=== PATIENT | female | born 1975 | race Caucasian/White ===

== ENCOUNTER → 2021-05-21 | Outpatient (CLI) | payer BC | END | disposition home or self-care (01) | DX: R05 Cough (principal) | CPT/HCPCS: 94060; 94726; 94729 ==

== ENCOUNTER → 2022-02-12 | Outpatient (CLI) | payer BC ==
--- NOTE | 2022-02-12 17:28 | CONS ---
CONSULTATION DATE OF SERVICE: 02/12/2022 This 46-year-old lady has been [facility] for possible obstructive sleep apnea-hypopnea syndrome. HISTORY OF PRESENT ILLNESS/SLEEP-WAKE EVALUATION: The patient does not have a regular sleep schedule. Usually on weekdays she gets up around 5:30 or 6 a.m. and on weekends at different times, later. She has a TV set in the bedroom. Sometimes she has problems with falling asleep. According to her , she snores and wakes up from sleep several times during the night with a dry mouth, panic attacks, palpitations, heartburn. Positive history of restless legs and sweating during the night. No history of hypnagogic hallucinations, sleep paralysis or cataplexy. In the morning the patient wakes up tired, falling asleep during the day, has problems with memory, concentration, irritability, sexual dysfunction. [place] Sleepiness Scale is significantly increased to 16. Sometimes the patient takes naps in the evening. PAST MEDICAL HISTORY: Positive for hypertension, acid reflux, hypothyroidism, panic attacks, arthritis, hypothyroidism, anemia. PAST SURGICAL HISTORY: x2, ganglion cyst removed. MEDICATIONS: 1. Levothyroxine 100 mcg once a day. 2. Omeprazole 20 mg once a day. 3. Losartan 25 mg once a day. 4. Hydrochlorothiazide 25 mg once a day. 5. Nadolol 20 mg once a day. 6. Iron supplement 75 mg once a day. FAMILY HISTORY: Hypertension, heart problems asthma, emphysema, diabetes. REVIEW OF SYSTEMS: Snoring, multiple awakenings from sleep, sleepiness during the day. No fevers. No double vision. No recent chest pain. No shortness of breath. No abdominal pain. No bleeding episodes. No blood in the urine. No seizure episodes. PHYSICAL EXAMINATION: GENERAL: Pleasant lady without distress. VITAL SIGNS: BP 133/73, HR 66, RR 16, height 5 feet 6 inches, weight 292 pounds, body mass index 47.1, temperature 97.0, oxygen saturation at room air 100%. HEENT: PERRLA, EOMI, evaluation of oropharynx showed tongue protrudes midline. Big uvula. Wide pillars. NECK: Supple, no JVD. Thyroid is not palpable. Neck is wide; 17 inches in circumference. LUNGS: Clear to percussion and to auscultation. Good air exchange. No wheezing or rhonchi. HEART: S1, S2 regular. No murmurs, gallops, or rubs. ABDOMEN: Obese. EXTREMITIES: No clubbing or cyanosis. BLEACH MAKER: Awake, alert, and oriented X3. Cranial nerves 2 to 7 intact. There is no fasciculation or atrophy. noted. No focal deficits observed. IMPRESSION: 1. Snoring, multiple awakenings from sleep, small oropharyngeal air space, sleepiness, [place] Sleepiness Scale increased to 16, wide neck, 17 inches in circumference; obstructive sleep apnea-hypopnea syndrome. 2. Obesity; body mass index 47.1. 3. Hypertension. 4. Hypothyroidism. 5. Acid reflux. 6. History of anemia. 7. History of restless leg symptoms. 8. History of panic attacks. 9. Status post x2. 10.Status post ganglion cyst removed. PLAN: 1. Polysomnography for evaluation of patient's breathing during sleep. 2. CPAP/BiPAP titration if sleep study confirms obstructive sleep apnea-hypopnea syndrome. 3. Preferable position during sleep on the side. 4. No driving if patient feels any sleepiness. 5. I will see patient for follow up visit to explain results of testing and following plan. Thank you very much for referring this patient for consultation. Sincerely, Wade Castellanos MD, PhD, FAASM Diplomat of [employer] Sleep Medicine [employer] Telephone [facility] [place] [facility] / REDN: [id number] /
== END | disposition home or self-care (01) ==
LOC: SLEEP 13:23
PROVIDERS: ATTEND Internal Medicine
DX: G47.33 Obstructive sleep apnea (adult) (pediatric) (principal); R06.83 Snoring; E66.9 Obesity, unspecified; I10 Essential (primary) hypertension; E03.9 Hypothyroidism, unspecified; K21.9 Gastro-esophageal reflux disease without esophagitis; Z86.2 Personal history of diseases of the blood and blood-forming organs and certain disorders involving the immune mechanism; Z86.69 Personal history of other diseases of the nervous system and sense organs; Z98.890 Other specified postprocedural states; Z68.42 Body mass index [BMI] 45.0-49.9, adult
CPT/HCPCS: 99211

== ENCOUNTER → 2024-10-21 | Outpatient (CLI) | payer OTHER ==
--- NOTE | 2024-10-21 16:17 | US ---
EXAMINATION TYPE: US pelvis complete transvag DATE OF EXAM: 10/21/2024 COMPARISON: NONE CLINICAL INDICATION: Female, 49 years old with history of N93.9 ABNORMAL UTERINE AND VAGINAL BLEEDING , UNSPE; h/o ablation 10+years ago, has always had bleeding, heavy the past 2 years with pain, 2 c-se ctions, tubal ligation TECHNIQUE: TA/TV. Transabdominal grayscale sonographic images of the pelvis were acquired. Transvaginal sonographic im ages Doppler imaging: Not performed. FINDINGS: Date of LMP: 08/17/2024 EXAM MEASUREMENTS: Uterus: 11.2 x 6.1 x 5.5cm Endometrial Stripe: undiscernible Right Ovary: not seen Left Ovary: 2.0 x 2.8 x 1.9 cm 1. Uterus: anteverted, heterogeneous 2. Endometrium: not seen TA or TV approach 3. Right Ovary: not seen due to bowel gas 4. Left Ovary: wnl 5. Bilateral Adnexa: wnl 6. Posterior cul-de-sac: wnl IMPRESSION: 1. No evidence for acute process. No organizing fluid collection or adenopathy identified. 2. Endometrium poorly visualized possibly due to a history of ablation. [facility], , 10/21/2024 4:15 PM
== END | disposition home or self-care (01) ==
LOC: RADUSWWP 07:45
PROVIDERS: ATTEND Obstetrics & Gynecology
DX: N93.9 Abnormal uterine and vaginal bleeding, unspecified (principal)
CPT/HCPCS: 76830; 76856